=== PATIENT | female | born 1935 | race Caucasian/White ===

== ENCOUNTER → 2018-08-13 | Outpatient (CLI) | payer OTHER ==
[~2018-08-13] MED LIST: REGADENOSON 0.4 MG/5 ML DISP.SYRIN. IV ONE
--- NOTE | 2018-08-13 11:49 | PCVCIMAG ---
APPROVED REPORT Study performed: 08/13/2018 10:17:02 EXAM: Comprehensive 2D, Doppler, and color-flow Echocardiogram Patient Location: Echo lab Status: routine BSA: 2.04 HR: 92 bpmBP: 142/88 mmHg Rhythm: Atrial Fibrillation Other Information Study Quality: Adequate Indications Diabetes Atrial Fibrillation Nonischemic cardiomyopathy, HTN 2D Dimensions IVSd: 10.14 (7-11mm) LVDd: 48.91 mm PWd: 10.91 (7-11mm)Ascending Ao: 38.09 (22-36mm) LVDs: 40.40 (25-40mm) Left Atrium: 44.89 (27-40mm) Aortic Root: 37.38 mm LV Single Plane 4CH: 34.65 % LV Single Plane 2CH: 35.89 % Biplane EF: 34.2 % Volumes Left Atrial Volume (Systole) Single Plane 4CH: 84.85 mLSingle Plane 2CH: 111.73 mL LA ESV Index: 48.00 mL/m2 Aortic Valve AoV Peak Sigifredo.: 1.21 m/s AO Peak Gr.: 5.86 mmHgLVOT Max P.03 mmHg LVOT Max V: 0.71 m/s Pulmonary Valve PV Peak Sigifredo.: 0.63 m/sPV Peak Gr.: 1.62 mmHg Tricuspid Valve TR Peak Sigifredo.: 3.09 m/s TR Peak Gr.: 38.35 mmHg Left Ventricle The left ventricle is normal size. There is normal LV segmental wall motion. There is normal left ventricular wall thickness. Left ventricular systolic function is moderate to severely decreased. LVEF is 35%. This study is not technically sufficient to allow evaluation of the LV diastolic function due to atrial fibrillation. Right Ventricle The right ventricle is normal size. The right ventricular systolic function is normal. Atria Left atrium is severely dilated. Right atrium is moderately dilated. Aortic Valve The aortic valve is normal in structure. Mild aortic regurgitation. There is no aortic valvular stenosis. Mitral Valve The mitral valve is normal in structure. Moderate mitral regurgitation. No evidence of mitral valve stenosis. Tricuspid Valve The tricuspid valve is normal in structure. Moderate to severe tricuspid regurgitation with PAP of 48 mmHg. Pulmonic Valve The pulmonary valve is normal in structure. Mild pulmonic regurgitation. Great Vessels The aortic root is normal in size. IVC is dilated and collapses >50% with inspiration. Pericardium There is no pericardial effusion. There is no pleural effusion. <Conclusion> The left ventricle is normal size. There is normal left ventricular wall thickness. Left ventricular systolic function is moderate to severely decreased. The right ventricle is normal size. Left atrium is severely dilated. Right atrium is moderately dilated. Mild aortic regurgitation. Moderate mitral regurgitation. Moderate to severe tricuspid regurgitation with PAP of 48 mmHg.
--- NOTE | 2018-08-13 14:20 | PCVCIMAG ---
APPROVED REPORT Imaging Protocol: Rest Tc-99m/Stress Tc-99m 1 day Study performed: 08/13/2018 12:15:41 Indication: CAD Patient Location: Out-Patient Stress Nurse: Roxanne Palacios RN, MARIELENA Carballo Tech:[employer] NMDIAMONDB Ht: 5 ft 6 in Wt: 215 lbs BSA: 2.06 m2 HR: 94 bpm BP: 136/86 mmHg BMI: 34.69 Rhythm: Afib Medical History Medical History: Age, HTN, PVD, Afib, CHF, CAD, DM Medications: Coreg, Lasix, Pradaxa, Valsartan Allergies: Sulfa Pretest Chest Pain Characteristics: No chest pain Exercise History: Sedentary Meds Held (24 hrs): Coreg Resting Data Rest SPECT myocardial perfusion imaging was performed in supine position 45 minutes following the intravenous injection of 11.6 mCi of Tc-99m Sestamibi. Time of rest injection: 1135 Date: 08/13/2018 Administration Route: IV Administration Site: Right AC Pharmacologic Stress Pharmacologic stress test was performed by injecting Regadenoson 0.4 mg IV push over 10-15 seconds immediately followed by the intravenous injection of 36 mCi of Tc-99m Sestamibi. Time of stress injection: 1250 Date: 08/13/2018 Administration Route: IV Administration Site: Right AC Gated Stress SPECT was performed 45 minutes after stress injection. The images were gated to evaluate regional wall motion and calculate left ventricular ejection fraction. Stress Test Details Stress Test: Pharmacologic stress testing performed using 0.4 mg of regadenoson per 5 mL given IV over 10 seconds. Reason for pharmacologic stress test: physical limitation. HRMax Heart Rate (APMHR): 136 bpm Resting HR: 94 bpmTarget HR (85% APMHR): 115 bpm Max HR Achieved: 101 bpm % of APMHR: 74 Recovery HR: 85 bpm BP Resting BP: 136/86 mmHg Max BP: 139/84 mmHg Recovery BP: 150/50 mmHg ECG Resting ECG: Atrial Fibrillation Stress ECG: Atrial Fibrillation ST Change: Non-ischemic Arrhythmia: PVC's Recovery ECG: Atrial Fibrillation Clinical Reason for Termination: Completed protocol Stress Symptoms: None Exercise duration: min 55 sec Symptoms resolved with caffeine. Study Quality Study: Good Study Data Post stress, the left ventricular ejection was 38%.. SSS: 6 SRS: 2 SDS: 4 TID = 1.07. Perfusion There is a medium area of moderately reduced uptake in the mid and apical segment of the anterior wall which is seen on the stress images and improves on the resting images. This is most consistent with ischemia. Wall Motion Moderately decreased left ventricular systolic function. Nuclear Conclusion ECG Findings: non-diagnostic Clinical Findings: non-diagnostic Nuclear Findings: positive for ischemia Exercise Capacity: not assessed Left Ventricular Function: abnormal This study reveals a reversible defect in the anterior wall, consistent with ischemia. There is moderate global LV dysfunction.
== END | disposition home or self-care (01) ==
LOC: PCVCIMAG 10:46
PROVIDERS: ATTEND Internal Medicine Cardiovascular Disease
DX: I08.3 Combined rheumatic disorders of mitral, aortic and tricuspid valves (principal); I25.10 Atherosclerotic heart disease of native coronary artery without angina pectoris; I42.8 Other cardiomyopathies; I10 Essential (primary) hypertension; R60.0 Localized edema; R91.8 Other nonspecific abnormal finding of lung field
CPT/HCPCS: 78452; 93017; 93306; A9500; J2785

== ENCOUNTER → 2018-09-20 | Outpatient (CLI) | payer OTHER | END | disposition home or self-care (01) | LOC: PCVCCLINIC 15:28 | PROVIDERS: ATTEND Internal Medicine Cardiovascular Disease | DX: I25.10 Atherosclerotic heart disease of native coronary artery without angina pectoris (principal); I42.8 Other cardiomyopathies; R60.9 Edema, unspecified; I48.2 Chronic atrial fibrillation; E11.9 Type 2 diabetes mellitus without complications; Z79.4 Long term (current) use of insulin; Z87.891 Personal history of nicotine dependence | CPT/HCPCS: 93005; G0463 ==

== ENCOUNTER → 2018-11-05 | Outpatient (CLI) | payer OTHER | END | disposition home or self-care (01) | LOC: PCVCCLINIC 11:30 | PROVIDERS: ATTEND Internal Medicine Cardiovascular Disease | DX: I25.10 Atherosclerotic heart disease of native coronary artery without angina pectoris (principal); I48.2 Chronic atrial fibrillation; I10 Essential (primary) hypertension; R60.9 Edema, unspecified; Z88.2 Allergy status to sulfonamides; Z88.8 Allergy status to other drugs, medicaments and biological substances; Z79.899 Other long term (current) drug therapy; Z79.4 Long term (current) use of insulin; Z87.891 Personal history of nicotine dependence | CPT/HCPCS: 93005; G0463 ==